=== PATIENT | male | born 1965 | race Caucasian/White ===

== ENCOUNTER 2016-10-02 21:07 | Inpatient (IN) | payer OTHER ==
[~2016-10-02] VITALS: Ht 210.8 cm; Wt 115.5 kg
[2016-10-02 21:32] LABS: ADD MIUA? NO; BILIRUBIN SMALL; BLOOD NEGATIVE; COLOR AMBER ((YELLOW)); GLUCOSE (STRIP) >=500; KETONES 5; LEUKOCYTES NEGATIVE; NITRITE NEGATIVE; PROTEIN (STRIP) 30; SPECIFIC GRAVITY 1.038 (1.000-1.030); UCUL ADDED? NO
[2016-10-02 21:42] LABS: MCHC 32.6 G/DL (30.0-36.0); MEAN PLAT.VOLUME 9.6 uM^3 (9.0-12.4); PLATELET COUNT 223 K/uL (156-360); RBC DIS.WIDTH-CV 13.5 % (11.8-14.6); RBC DIS.WIDTH-SD 43.9 % (39-53); RED BLOOD COUNT 5.17 M/uL (4.00-5.50); WHITE BLOOD COUNT 5.1 K/uL (4.1-10.2)
[2016-10-02 21:52] LABS: CHLORIDE 106 mEq/L (99-109); SODIUM 141 mEq/L (136-147)
[2016-10-02 21:54] LABS: GLUCOSE 100 mg/dL (70-99)
[2016-10-02 21:56] LABS: ANION GAP 8 MEQ/L (2-14); TOTAL BILIRUBIN 4.6 mg/dL (0.0-1.0)
[2016-10-02 21:58] LABS: ALKALINE PHOSPHATASE 120 IU/L (3-129); GFR ESTIMATE (CALCULATED) > 59 mL/min/
[2016-10-02 21:59] LABS: UREA NITROGEN (BUN) 17 mg/dL (9-23)
[2016-10-03] MEDS ORDERED: INVOKANA100 MG PO (01:40)
[2016-10-03] MEDS ORDERED: LISINOPRIL10 MG PO (01:40)
[2016-10-03] MEDS ORDERED: ALLEGRA-D 121 TABLET PO (01:40)
[2016-10-03 02:59] VITALS: BP 189/75
[2016-10-03 07:33] VITALS: BP 124/69
[2016-10-03 10:46] LABS: HEMATOCRIT 45.1 % (38.0-50.0); MCH 29.1 PG (29.0-34.0); MCHC 32.8 G/DL (30.0-36.0); MCV 88.8 FL (86-99); MEAN PLAT.VOLUME 9.5 uM^3 (9.0-12.4); PLATELET COUNT 209 K/uL (156-360); RBC DIS.WIDTH-CV 13.5 % (11.8-14.6); RBC DIS.WIDTH-SD 43.8 % (39-53); RED BLOOD COUNT 5.08 M/uL (4.00-5.50)
[2016-10-03 11:35] LABS: FERRITIN 465 NG/ML (22-322)
[2016-10-03 11:36] LABS: ALKALINE PHOSPHATASE 118 IU/L (3-129); ANION GAP 9 MEQ/L (2-14); CHLORIDE 105 MEQ/L (99-109); GFR ESTIMATE (CALCULATED) > 59 mL/min/; GLUCOSE 102 mg/dL (70-99); POTASSIUM 3.9 MEQ/L (3.7-5.4); SAMPLE HEMOLYSIS CHECK 0; SAMPLE ICTERIC CHECK 1; SAMPLE LIPEMIA CHECK 0; SODIUM 140 MEQ/L (136-147); TOTAL BILIRUBIN 4.2 MG/DL (0.0-1.0); UREA NITROGEN (BUN) 12 mg/dL (9-23)
[2016-10-03 15:48] VITALS: BP 155/82
[2016-10-04 00:28] VITALS: BP 134/77
[2016-10-04 05:41] LABS: HEMATOCRIT 44.7 % (38.0-50.0); MCH 30.1 PG (29.0-34.0); MCHC 33.8 G/DL (30.0-36.0); MEAN PLAT.VOLUME 9.6 uM^3 (9.0-12.4); PLATELET COUNT 205 K/uL (156-360); RBC DIS.WIDTH-CV 13.6 % (11.8-14.6); RBC DIS.WIDTH-SD 44.2 % (39-53); RED BLOOD COUNT 5.02 M/uL (4.00-5.50); WHITE BLOOD COUNT 5.6 K/uL (4.1-10.2)
[2016-10-04 05:51] LABS: PROTHROMBIN TIME 10.6 (9.2-11.2)
[2016-10-04 06:25] LABS: ALKALINE PHOSPHATASE 120 IU/L (3-129); DIRECT BILIRUBIN 2.7 mg/dL (0.0-0.3); TOTAL BILIRUBIN 4.3 MG/DL (0.0-1.0)
[2016-10-04 08:03] VITALS: BP 135/76
[2016-10-04 11:36] LABS: HBSG INDEX 0.21; HPCA INDEX 0.09
[2016-10-04 11:37] LABS: ANTI-HEPATITIS A VIRUS (IGM) Nonreactive; HAV INDEX 0.15
[2016-10-04 11:38] LABS: ANTI-HEPATITIS B CORE (IGM) Nonreactive; HBC IgM INDEX 0.11
[2016-10-04 16:18] VITALS: BP 158/84
[2016-10-04 23:00] VITALS: BP 122/64
[2016-10-05 07:16] LABS: HEMATOCRIT 45.4 % (38.0-50.0); MCH 29.6 PG (29.0-34.0); MCV 89.7 FL (86-99); MEAN PLAT.VOLUME 9.6 uM^3 (9.0-12.4); PLATELET COUNT 211 K/uL (156-360); RBC DIS.WIDTH-CV 14.1 % (11.8-14.6); RBC DIS.WIDTH-SD 45.1 % (39-53); RED BLOOD COUNT 5.06 M/uL (4.00-5.50); WHITE BLOOD COUNT 7.8 K/uL (4.1-10.2)
[2016-10-05 07:37] LABS: ALKALINE PHOSPHATASE 136 IU/L (3-129); ANION GAP 11 MEQ/L (2-14); CHLORIDE 105 MEQ/L (99-109); GFR ESTIMATE (CALCULATED) > 59 mL/min/; GLUCOSE 93 mg/dL (70-99); POTASSIUM 3.9 MEQ/L (3.7-5.4); SAMPLE HEMOLYSIS CHECK 0; SAMPLE ICTERIC CHECK 1; SAMPLE LIPEMIA CHECK 0; SODIUM 141 MEQ/L (136-147); UREA NITROGEN (BUN) 15 mg/dL (9-23)
[2016-10-05 07:49] LABS: TOTAL BILIRUBIN 3.1 MG/DL (0.0-1.0)
[2016-10-05 08:02] VITALS: BP 127/73
[2016-10-05 15:34] LABS: POINT-OF-CARE METER ID UU13113819
[2016-10-05 16:00] VITALS: BP 133/81
[2016-10-06 03:40] VITALS: BP 129/75
[2016-10-06 06:35] LABS: ALKALINE PHOSPHATASE 111 IU/L (3-129); ANION GAP 9 MEQ/L (2-14); CHLORIDE 103 MEQ/L (99-109); GFR ESTIMATE (CALCULATED) > 59 mL/min/; GLUCOSE 85 mg/dL (70-99); POTASSIUM 3.8 MEQ/L (3.7-5.4); SAMPLE HEMOLYSIS CHECK 0; SAMPLE ICTERIC CHECK 0; SAMPLE LIPEMIA CHECK 0; SODIUM 139 MEQ/L (136-147); UREA NITROGEN (BUN) 16 mg/dL (9-23)
[2016-10-06 06:42] LABS: TOTAL BILIRUBIN 1.8 MG/DL (0.0-1.0)
[2016-10-06 07:15] VITALS: BP 136/80
[2016-10-06 10:53] LABS: HCV RNA (IU/mL) <15 IU/mL (<15)
[2016-10-06 16:05] VITALS: BP 140/74
[2016-10-06 17:06] LABS: MITOCHONDRIAL (M2) ANTIBODIES+ <=20.0 U (<=20.0)
[2016-10-06] MEDS ORDERED: PANTOPRAZOLE SO40 MG PO (17:32)
[2016-10-06 18:07] LABS: ANTI-SMOOTH MUSCLE (Actin)+ <20 U (<20)
[2016-10-07 13:19] LABS: HCV RNA (LOG IU/mL) <1.18 (<1.18)
== END 2016-10-06 18:14 | disposition home or self-care (01) | DRG 443 ==
LOC: EME 21:07 → RME 21:07 → EDOF 10-03 01:25 → 5EAST 10-03 01:25
PROVIDERS: Family Medicine; Internal Medicine Gastroenterology; Physician Assistant
PROC: 0DB78ZX Excision of Stomach, Pylorus, Via Natural or Artificial Opening Endoscopic, Diagnostic (ICD-10-PCS; principal; 2016-10-05)
DX: B17.9 Acute viral hepatitis, unspecified (principal); K29.70 Gastritis, unspecified, without bleeding; K76.0 Fatty (change of) liver, not elsewhere classified; I10 Essential (primary) hypertension; E11.9 Type 2 diabetes mellitus without complications; E78.00 Pure hypercholesterolemia, unspecified; E66.9 Obesity, unspecified; K80.20 Calculus of gallbladder without cholecystitis without obstruction; Z79.899 Other long term (current) drug therapy; Z87.442 Personal history of urinary calculi; Z80.0 Family history of malignant neoplasm of digestive organs
CPT/HCPCS: 36415; 70140; 74183; 76705; 80053; 80074; 80076; 81003; 82248; 82390; 82728; 82948; 83516 90; 85025; 85027; 85610; 85651; 86038; 86256 90; 87522 90; 88305; 88342 TC; 99281; 99284

== ENCOUNTER → 2016-11-02 | Outpatient (CLI) | payer OTHER ==
[~2016-11-02] MED LIST: ALLEGRA-D 121 TABLET PO; INVOKANA100 MG PO; LISINOPRIL10 MG PO; PANTOPRAZOLE SO40 MG PO
== END | disposition home or self-care (01) ==
LOC: NUC 12:51
DX: K82.8 Other specified diseases of gallbladder (principal); R74.0 Nonspecific elevation of levels of transaminase and lactic acid dehydrogenase [LDH]; K80.20 Calculus of gallbladder without cholecystitis without obstruction; K76.0 Fatty (change of) liver, not elsewhere classified; Z86.010 Personal history of colon polyps; Z80.0 Family history of malignant neoplasm of digestive organs; K29.30 Chronic superficial gastritis without bleeding
CPT/HCPCS: 78227; A9537; J2805

== ENCOUNTER → 2016-12-10 | Outpatient (CLI) | payer OTHER | END | disposition home or self-care (01) | LOC: CDC 14:22 | DX: K80.20 Calculus of gallbladder without cholecystitis without obstruction (principal); I45.4 Nonspecific intraventricular block | CPT/HCPCS: 93000 ==

== ENCOUNTER 2016-12-31 11:58 | Day surgery (SDC) | payer OTHER ==
[~2016-12-31] VITALS: Ht 180.3 cm; Wt 117.9 kg
[2016-12-31] MEDS ORDERED: FLONASE16 G1 BOTH NARES (12:18)
[2016-12-31 12:27] VITALS: BP 139/84
[2016-12-31] MEDS ORDERED: COLACE100 MG PO (14:43)
[2016-12-31] MEDS ORDERED: PERCOCET 5/31 TABLET PO (14:43)
[2016-12-31 16:10] VITALS: BP 177/92
[2016-12-31 17:15] VITALS: BP 150/79
== END 2016-12-31 17:33 | disposition home or self-care (01) ==
LOC: SDC 11:58
PROC: 0FT44ZZ Resection of Gallbladder, Percutaneous Endoscopic Approach (ICD-10-PCS; principal; 2016-12-31)
DX: K80.10 Calculus of gallbladder with chronic cholecystitis without obstruction (principal); I10 Essential (primary) hypertension; E11.9 Type 2 diabetes mellitus without complications; R74.8 Abnormal levels of other serum enzymes; G47.33 Obstructive sleep apnea (adult) (pediatric)
CPT/HCPCS: 88304; J0131; J0330; J1100; J1170; J1885; J2250; J2405; J3010